=== PATIENT | female | born 1930 | race Caucasian/White ===

== ENCOUNTER → 2016-10-18 | Outpatient (CLI) | payer OTHER ==
[~2016-10-18] MED LIST: ALBUTEROL17 GM INH; ALLEGRA PO; AMLODIPINE BESYL5 MG PO; AMLODIPINE-BEN1 EAC3 PO; ASPIRIN EC81 M1 PO; B COMPLEX1 CA1 PO; COZAAR100 MG PO; FENOFIBRATE145 MG PO; HYDROCHLOROTHIA25 MG PO; KLOR-CON PO; METFORMIN HCL500 M1 PO; OSTEO MATRIX PO; PRAVACHOL20 MG PO; SIMVASTATIN20 MG PO; SINGULAIR PO; [UNRECOGNIZED DRUG - OTHER]
--- NOTE | ~2016-10-18 | MR112 ---
[facility] A Service of [facility] & [facility] RADIOLOGY TEXT RESULTS PATIENT: AMERICO LR LOCATION: [facility] : 32 UNIT #: [id number] AGE: [address]: Pilo Woodson II, MD SEX: F ORDER DR: [id number] [facility] [address] [place], [place] [address] [id number] O MR#: [id number] Acc #: [id number] NAME: AMERICO LR : 1930 SEX: F STUDY DATE/TIME: 10/18/2016 13:43 UNIT: [facility] ROOM: STUDY DESCRIPTION: MR Lumbar WWo Contrast Attending Physician: Pilo Woodson II., M.D. Referring Physician: Pilo Woodson II., M.D. Ordering Physician: Pilo Woodson II., M.D. Primary Care Physician: Norman Everett M.D. MRI CENTER REPORT This report is preliminary unless electronic signature is present. EXAM MRI of the lumbar spine with and without contrast dated 10/18/2016 COMPARISON MRI lumbar spine without contrast dated 05/10/2013. HISTORY Severe low back pain for 20-25 years. Bilateral leg pain with numbness in feet for 5 years. Peripheral neuropathy. It is worsening in the last 2 years. Patient had a fall earlier in the year. No prior back surgery. FINDINGS Multisequence, multiplanar imaging of the lumbar spine was obtained with and without contrast. GFR measured greater than 60. 11 mL of MultiHance was administered intravenously. There is a 5 mm retrolisthesis of L5 with respect to L4. Superior endplate compression deformity with Schmorl's node is noted at L1. No associated edema. There is over 30% loss of vertebral body height. Chronic compression deformity is also noted at T11 vertebral body with about 50% loss of height, new since prior study from 3 years ago. L1 compression is stable. Conus terminates at upper L2. Signal of conus and cauda equina are within normal limits. Pre- and paravertebral soft tissues do not demonstrate any significant abnormality. There are no enhancing mass in the cord, cauda equina, or lumbar spine. T12-L1: Disc osteophyte complex with mild bilateral facet changes. Borderline-sized canal is seen without any significant neural foraminal narrowing. L1-2: Mild disc bulge with mild bilateral facet changes. No canal stenosis or neural foraminal narrowing. L2-3: Concentric disc bulge with superimposed bilateral iydscdzfp-cl-ancuqsuafqwakp broad-based protrusions, mild bilateral neural STS. [facility] A Service of [facility] RADIOLOGY TEXT RESULTS PATIENT: AMERICO LR LOCATION: [facility] : 32 UNIT #: [id number] AGE: [address]: Pilo Woodson II, MD SEX: F ORDER DR: foraminal narrowing, loza-ts-zccncmdt bilateral facet changes and moderate bilateral ligamentum flavum thickening. Rnls-ep-xpiihmpm canal stenosis. Findings are relatively stable. L3-4: Disc osteophyte complex with izkf-tm-fbjuchup bilateral neural foraminal narrowing, severe right and obqzbmdw-iz-alenup left facet hypertrophic changes. Bdzyaeqc-hx-qajvpt canal stenosis is seen with mild right lateral recess stenosis. Relatively stable. L4-5: Moderate disc bulge with a very severe right and severe left facet hypertrophic changes. Oaeqqgrn-zw-wugazo canal stenosis, plpy-gv-bjoizfss left and severe right neural foraminal narrowing are present. Previously noted increased T2-signal lesion in the left paraspinous region is not seen. It is probably a benign incidental inflammatory lesion. L5-S1: Disc osteophyte complex with very severe bilateral facet hypertrophic changes. Severe bilateral neural foraminal narrowing is seen with 7 mm increased T2-signal lesion in the left paraspinous region. It enhanced in the periphery with a nonenhancing central component. It could represent mild inflammatory synovial tissue with some fluid. Small amount of joint fluid is noted in the left facet joint. There is myif-nu-wrumwnwg right and moderate left lateral recess stenosis with xtnpvttu-wy-beielm bilateral neural foraminal narrowing. Stable. IMPRESSION 1. Degenerative changes are noted at multiple levels, relatively stable. 2. There is interval new chronic compression deformity of T11 vertebral body with about 50% loss of height. No associated edema. 3. The chronic compression superior endplate deformity with Schmorl's node at L1 does not appear to have significantly worsened in the interval. Dictated by... Sabi Saeed M.D. THIS IS AN ELECTRONICALLY VERIFIED REPORT Sabi Saeed M.D. at 10/19/2016 4:43 PM CPR/aa TD: 10/19/2016 14:46 JOB #: [id number] MRI CENTER REPORT Page 1 of 1 COPY
[2016-10-18 17:06] LABS: POC - CREATININE 0.68 mg/dL (0.44-1.03); POC - GFR >60.0 mL/min (>60)
== END | disposition home or self-care (01) ==
LOC: CMRI 10-15 15:00
PROVIDERS: Psychiatry & Neurology Neurology
DX: M48.06 Spinal stenosis, lumbar region (principal); M51.26 Other intervertebral disc displacement, lumbar region; M47.896 Other spondylosis, lumbar region; M43.8X6 Other specified deforming dorsopathies, lumbar region
CPT/HCPCS: 72158; 82565; A9577